=== PATIENT | male | born 1995 | race Caucasian/White ===

== ENCOUNTER 2023-07-17 09:07 | Emergency (ER) | payer BC, OTHER ==
[2023-07-17 09:46] VITALS: BP 125/74; PULSE 76; RESP 17; TEMP 97.9; BMI 35.7
== END 2023-07-17 10:41 | disposition home or self-care (01) ==
LOC: FER 09:07
DX: M25.571 Pain in right ankle and joints of right foot (principal); S82.54XA Nondisplaced fracture of medial malleolus of right tibia, initial encounter for closed fracture; X50.1XXA Overexertion from prolonged static or awkward postures, initial encounter
CPT/HCPCS: 73610-TC-RT-FY; 73630-TC-RT-FY; 99283-25